=== PATIENT | female | born 1980 | race Caucasian/White ===

== ENCOUNTER 2017-03-10 18:13 | Emergency (ER) | payer MEDICAID ==
[~2017-03-10] VITALS: Ht 162.6 cm; Wt 70.0 kg
[~2017-03-10 18:13] MED LIST: BACTRIM DS1 TAB PO; MACROBID100 MG PO; NAPROSYN500 MG PO; NO HOME MEDS; PENICILLN VK500 MG PO; PYRIDIUM200 MG PO
[2017-03-10 19:10] LABS: HEMATOCRIT 38.3 % (37.0-47.0); HEMOGLOBIN 12.5 g/dl (12.0-16.0); IMMATURE GRANULOCYTES 0.3 % (0.0-1.0); MEAN CELL VOLUME 89.3 fL CALC (80.0-100.0); MEAN CORPUSCULAR HGB 29.1 pG CALC (26.0-32.0); MEAN CORPUSCULAR HGB CONC 32.6 g/L CALC (32.0-36.0); NEUT# 6.6 thou/uL (2.00-7.15); RED BLOOD COUNT 4.29 mill/uL (4.20-5.60); RED CELL DISTRI WIDTH 13.2 % (11.5-15.5)
[2017-03-10 19:18] LABS: ALKALINE PHOSPHATASE 58 u/l (38-126); AMYLASE 79 u/l (30-110); ANION GAP 17 (6-22 (CALC)); BILIRUBIN, TOTAL 0.4 mg/dL (0.0-1.4); BUN 10 mg/dL (7-17); BUN/CREATININE RATIO 16 (12-20 (CALC)); CALCIUM 9.9 mg/dL (8.4-10.2); CARBON DIOXIDE 30 mmol/l (22-30); CHLORIDE 101 mmol/l (95-108); CREATININE 0.6 mg/dL (0.5-1.0); GFR > 60 ML/MIN (>=60 (CALC)); GFR FOR AFR.AMER. > 60 ML/MIN (>=60 (CALC)); GLUCOSE 94 mg/dL (65-105); LIPASE 340 u/l (23-300); POTASSIUM 3.6 mmol/l (3.5-5.1); SGOT/AST 19 u/l (14-36); SGPT/ALT 33 u/l (9-52); SODIUM 144 mmol/l (137-146); TOTAL PROTEIN 7.8 g/dL (6.3-8.2)
[2017-03-10 19:52] LABS: URINE BILIRUBIN - DIPSTICK NEGATIVE (NEGATIVE); URINE BLOOD DIPSTICK NEGATIVE (NEGATIVE); URINE CLARITY TURBID; URINE COLOR YELLOW; URINE GLUCOSE - DIPSTICK NEGATIVE (NEGATIVE); URINE KETONE NEGATIVE (NEGATIVE); URINE LEUK ESTERASE NEGATIVE (NEGATIVE); URINE NITRITE - DIPSTICK NEGATIVE (Negative); URINE PH 8.5 (4.5-8.0); URINE PROTEIN - DIPSTICK NEGATIVE (NEG-TRACE); URINE UROBILINOGEN - DIPSTICK 0.2 E.U./dL (0.2)
[2017-03-10 20:01] LABS: URINE AMORPH SEDIMENT MANY hpf (NONE-FEW); URINE BACTERIA FEW hpf; URINE MUCUS FEW hpf (NONE-FEW); URINE RBC 0-2 RBC/hpf (0-5); URINE SQUAMOUS EPITHELIAL CELL MANY EPI/hpf (0-FEW); URINE WBC 0-2 WBC/hpf (0-5)
[2017-03-10 23:23] VITALS: BP 98/54
== END 2017-03-10 23:22 | disposition home or self-care (01) | DRG 392 ==
LOC: ED 18:13
PROVIDERS: Emergency Medicine
DX: R10.30 Lower abdominal pain, unspecified (principal); R74.8 Abnormal levels of other serum enzymes; Z85.41 Personal history of malignant neoplasm of cervix uteri

== ENCOUNTER 2017-03-12 18:40 | Emergency (ER) | payer MEDICAID ==
[~2017-03-12] VITALS: Ht 162.6 cm; Wt 63.0 kg
[2017-03-12 20:07] LABS: HEMATOCRIT 36.6 % (37.0-47.0); IMMATURE GRANULOCYTES 0.4 % (0.0-1.0); MEAN CORPUSCULAR HGB 28.8 pG CALC (26.0-32.0); MEAN CORPUSCULAR HGB CONC 32.8 g/L CALC (32.0-36.0); NEUT# 6.8 thou/uL (2.00-7.15); RED BLOOD COUNT 4.16 mill/uL (4.20-5.60); RED CELL DISTRI WIDTH 13.2 % (11.5-15.5)
[2017-03-12 20:10] LABS: URINE BILIRUBIN - DIPSTICK NEGATIVE (NEGATIVE); URINE BLOOD DIPSTICK TRACE-INTACT (NEGATIVE); URINE CLARITY CLEAR; URINE COLOR YELLOW; URINE GLUCOSE - DIPSTICK NEGATIVE (NEGATIVE); URINE KETONE NEGATIVE (NEGATIVE); URINE LEUK ESTERASE NEGATIVE (NEGATIVE); URINE NITRITE - DIPSTICK NEGATIVE (Negative); URINE PH 5.5 (4.5-8.0); URINE PROTEIN - DIPSTICK NEGATIVE (NEG-TRACE); URINE SPECIFIC GRAVITY 1.025; URINE UROBILINOGEN - DIPSTICK 0.2 E.U./dL (0.2)
[2017-03-12 20:26] LABS: ALBUMIN 4.4 g/dL (3.2-5.0); ALKALINE PHOSPHATASE 55 u/l (38-126); AMYLASE 77 u/l (30-110); ANION GAP 15 (6-22 (CALC)); BILIRUBIN, TOTAL 0.4 mg/dL (0.0-1.4); BUN 8 mg/dL (7-17); BUN/CREATININE RATIO 14 (12-20 (CALC)); CALCIUM 9.5 mg/dL (8.4-10.2); CARBON DIOXIDE 27 mmol/l (22-30); CHLORIDE 105 mmol/l (95-108); CREATININE 0.6 mg/dL (0.5-1.0); GFR > 60 ML/MIN (>=60 (CALC)); GFR FOR AFR.AMER. > 60 ML/MIN (>=60 (CALC)); GLUCOSE 86 mg/dL (65-105); LIPASE 251 u/l (23-300); POTASSIUM 3.6 mmol/l (3.5-5.1); SGOT/AST 20 u/l (14-36); SGPT/ALT 29 u/l (9-52); SODIUM 143 mmol/l (137-146); TOTAL PROTEIN 7.2 g/dL (6.3-8.2)
[2017-03-12] MEDS ORDERED: TRAMADOL HYDROC50 MG PO (23:40)
[2017-03-13 00:15] VITALS: BP 122/70
== END 2017-03-13 00:22 | disposition home or self-care (01) | DRG 761 ==
LOC: ED 18:40
PROVIDERS: Emergency Medicine
DX: N83.202 Unspecified ovarian cyst, left side (principal); Z85.41 Personal history of malignant neoplasm of cervix uteri
CPT/HCPCS: Q9967

== ENCOUNTER 2017-03-21 10:59 | Day surgery (SDC) | payer MEDICAID ==
[~2017-03-21 10:59] MED LIST changes: +AZITHROMYCIN500 MG PO; +LORTAB 7.5-3251 TAB PO; +TRAMADOL HYDROC50 MG PO
[2017-03-21] MEDS ORDERED: LORTAB 5-325 MG1 TAB PO (14:04)
[2017-03-21 15:30] VITALS: BP 99/57
== END 2017-03-21 15:55 | disposition home or self-care (01) | DRG 336 ==
LOC: ORM 10:59
PROVIDERS: ATTEND Obstetrics & Gynecology
PROC: 0UT14ZZ Resection of Left Ovary, Percutaneous Endoscopic Approach (ICD-10-PCS; principal; 2017-03-21)
PROC: 0DNW4ZZ Release Peritoneum, Percutaneous Endoscopic Approach (ICD-10-PCS; 2017-03-21)
DX: R10.32 Left lower quadrant pain (principal); N83.512 Torsion of left ovary and ovarian pedicle; K52.9 Noninfective gastroenteritis and colitis, unspecified; N83.12 Corpus luteum cyst of left ovary; K66.0 Peritoneal adhesions (postprocedural) (postinfection); Z85.41 Personal history of malignant neoplasm of cervix uteri; Z80.41 Family history of malignant neoplasm of ovary; Z90.710 Acquired absence of both cervix and uterus
CPT/HCPCS: J2710

== ENCOUNTER 2022-04-08 15:48 | Emergency (ER) | payer MEDICAID ==
[~2022-04-08] VITALS: Ht 162.6 cm; Wt 75.9 kg
[~2022-04-08 15:48] MED LIST changes: +LORTAB 5-325 MG1 TAB PO
[2022-04-08 16:19] VITALS: BP 123/83
[2022-04-08 16:30] VITALS: BP 116/82
[2022-04-08 16:45] VITALS: BP 116/72
[2022-04-08 17:00] VITALS: BP 115/74
[2022-04-08] MEDS ORDERED: OMNI-PAC300 MG PO (17:06)
[2022-04-08 17:15] VITALS: BP 108/77
[2022-04-08 17:19] VITALS: BP 108/77
== END 2022-04-08 17:24 | disposition home or self-care (01) ==
LOC: ED 15:48
DX: S80.212A Abrasion, left knee, initial encounter (principal); W20.8XXA Other cause of strike by thrown, projected or falling object, initial encounter; Y93.89 Activity, other specified; Y92.009 Unspecified place in unspecified non-institutional (private) residence as the place of occurrence of the external cause

== ENCOUNTER 2022-08-07 17:13 | Emergency (ER) | payer MEDICAID ==
[~2022-08-07] VITALS: Ht 162.6 cm; Wt 78.0 kg
[~2022-08-07 17:13] MED LIST changes: +OMNI-PAC300 MG PO
[2022-08-07] MEDS ORDERED: NAPROXEN EC500 MG PO (17:58)
[2022-08-07 18:36] LABS: URINE BILIRUBIN - DIPSTICK NEGATIVE (NEGATIVE); URINE BLOOD DIPSTICK NEGATIVE (NEGATIVE); URINE COLOR YELLOW; URINE GLUCOSE - DIPSTICK NEGATIVE (NEGATIVE); URINE KETONE TRACE mg/dL (NEGATIVE); URINE LEUK ESTERASE NEGATIVE (NEGATIVE); URINE PROTEIN - DIPSTICK NEGATIVE (NEG-TRACE); URINE UROBILINOGEN - DIPSTICK 0.2 E.U./dL (0.2)
[2022-08-07 18:48] LABS: URINE NITRITE - DIPSTICK NEGATIVE (Negative)
[2022-08-07] MEDS ORDERED: FLEXERIL5 M1 PO (20:30)
[2022-08-07] MEDS ORDERED: HYDROCODONE BIT1 TA7 PO (20:30)
[2022-08-07] MEDS ORDERED: PREDNISONE10 MG PO (20:30)
[2022-08-07 20:38] VITALS: BP 110/75
== END 2022-08-07 20:51 | disposition home or self-care (01) ==
LOC: ED 17:13
PROVIDERS: Nurse Practitioner
DX: M54.50 Low back pain, unspecified (principal); G89.29 Other chronic pain

== ENCOUNTER 2022-08-10 13:47 | Emergency (ER) | payer MEDICAID ==
[~2022-08-10] VITALS: Ht 162.6 cm; Wt 68.0 kg
[~2022-08-10 13:47] MED LIST changes: +FLEXERIL5 M1 PO; +HYDROCODONE BIT1 TA7 PO; +NAPROXEN EC500 MG PO; +PREDNISONE10 MG PO
[2022-08-10 14:09] VITALS: BP 127/67
[2022-08-10] MEDS ORDERED: TRAMADOL HYDROC50 M1 PO (14:10)
[2022-08-10 14:15] VITALS: BP 122/81
[2022-08-10 14:30] VITALS: BP 121/80
[2022-08-10] MEDS ORDERED: HYDROCO/APAP1 TA9 PO (14:31)
[2022-08-10 14:45] VITALS: BP 120/81
[2022-08-10 15:00] VITALS: BP 132/81
[2022-08-10 15:03] VITALS: BP 132/81
== END 2022-08-10 15:12 | disposition home or self-care (01) ==
LOC: ED 13:47
DX: G89.29 Other chronic pain (principal); M54.50 Low back pain, unspecified

== ENCOUNTER 2023-09-20 05:44 | Emergency (ER) | payer SELFPAY ==
[~2023-09-20] VITALS: Ht 162.6 cm; Wt 69.0 kg
[2023-09-20] VITALS (10 sets, daily range): BP systolic 99–117; BP diastolic 54–73
[~2023-09-20 05:44] MED LIST changes: +HYDROCO/APAP1 TA9 PO; +TRAMADOL HYDROC50 M1 PO
[2023-09-20 06:00] LABS: URINE BILIRUBIN - DIPSTICK Negative (NEGATIVE); URINE BLOOD DIPSTICK Large (NEGATIVE); URINE GLUCOSE - DIPSTICK Negative (NEGATIVE); URINE KETONE Negative (NEGATIVE); URINE PH 5.5 (4.5-8.0); URINE PROTEIN - DIPSTICK >=300 mg/dL (NEG-TRACE); URINE SPECIFIC GRAVITY 1.025; URINE UROBILINOGEN - DIPSTICK 0.2 E.U./dL (0.2)
[2023-09-20 06:01] LABS: URINE COLOR Yellow; URINE LEUK ESTERASE Large (NEGATIVE); URINE NITRITE - DIPSTICK Positive (Negative)
[2023-09-20 06:07] LABS: URINE BACTERIA FEW hpf; URINE MUCUS FEW hpf (NONE-FEW); URINE SQUAMOUS EPITHELIAL CELL FEW EPI/hpf (0-FEW); URINE WBC 20-50 WBC/hpf (0-5)
[2023-09-20 06:38] LABS: BASO% 0.3 % (0-3); EOS% 2.4 % (0-8); HEMATOCRIT 40.5 % (37.0-47.0); HEMOGLOBIN 13.1 g/dl (12.0-16.0); IMMATURE GRANULOCYTES 0.1 % (0.0-5.0); LYMPH% 15.5 % (15-41); MEAN CELL VOLUME 89.2 fL CALC (80.0-100.0); MEAN CORPUSCULAR HGB 28.9 pG CALC (26.0-32.0); MEAN CORPUSCULAR HGB CONC 32.3 g/dL CAL (32.0-36.0); MONO% 6.1 % (2-13); NEUT# 10.1 thou/uL (2.00-7.15); NEUT% 75.6 % (42-76); RED BLOOD COUNT 4.54 mill/uL (4.20-5.60); RED CELL DISTRI WIDTH 12.1 % (11.5-15.5)
[2023-09-20 06:56] LABS: ALBUMIN 4.6 g/dL (3.2-5.0); ALKALINE PHOSPHATASE 71 u/l (38-126); ANION GAP 10 (6-22 (CALC)); BUN 10 mg/dL (7-17); BUN/CREATININE RATIO 14 (12-20 (CALC)); CARBON DIOXIDE 28 mmol/l (22-30); CHLORIDE 103 mmol/l (95-108); CREATININE 0.7 mg/dL (0.5-1.0); GFR FOR AFR.AMER. > 60 ML/MIN (>=60 (CALC)); GFR OTHER RACES > 60 ML/MIN (>=60 (CALC)); LIPASE 57 u/l (23-300); POTASSIUM 3.5 mmol/l (3.5-5.1); SGOT/AST 25 u/l (14-36); SODIUM 138 mmol/l (137-146); TOTAL PROTEIN 7.4 g/dL (6.3-8.2)
[2023-09-20 07:03] LABS: BILIRUBIN, TOTAL 0.7 mg/dL (0.02-1.3)
[2023-09-20] MEDS ORDERED: PYRIDIUM200 MG PO (09:41)
[2023-09-20] MEDS ORDERED: BACTRIM DS1 TAB PO (09:41)
== END 2023-09-20 10:10 | disposition home or self-care (01) | DRG 690 ==
LOC: ED 05:44
PROVIDERS: Emergency Medicine
DX: N39.0 Urinary tract infection, site not specified (principal); B96.20 Unspecified Escherichia coli [E. coli] as the cause of diseases classified elsewhere; K57.30 Diverticulosis of large intestine without perforation or abscess without bleeding

== ENCOUNTER 2023-10-10 19:42 | Emergency (ER) | payer SELFPAY | END 2023-10-10 20:45 | disposition left against medical advice (07) | DRG 951 | LOC: ED 19:42 | DX: Z53.21 Procedure and treatment not carried out due to patient leaving prior to being seen by health care provider (principal) ==